=== PATIENT | male | born 1995 | race Caucasian/White ===

== ENCOUNTER → 2017-05-06 | Outpatient (CLI) | payer MEDICAID, SELFPAY | PROVIDERS: Visit Provider Nurse Practitioner Family | DX: R73.09 Other abnormal glucose (principal); E03.9 Hypothyroidism, unspecified; I10 Essential (primary) hypertension; E55.9 Vitamin D deficiency, unspecified | CPT/HCPCS: 36415; 80053; 80061; 82306; 83036; 84443; 85025 ==

== ENCOUNTER → 2017-05-08 | Outpatient (CLI) | payer MEDICAID, SELFPAY | PROVIDERS: Visit Provider Physician Assistant | DX: D64.9 Anemia, unspecified (principal) | CPT/HCPCS: 36415; 82728 ==

== ENCOUNTER → 2023-04-21 09:07 | Outpatient (CLI) | payer BC, SELFPAY ==
--- NOTE | 2023-04-21 09:15 | XR_ITS ---
FINAL REPORT CLINICAL HISTORY: left thumb pain COMPARISON: None FINDINGS: LEFT HAND Three views with special attention to the left thumb demonstrate no acute fracture or dislocation. The visualized joint spaces are normally aligned. The soft tissues are unremarkable. IMPRESSION: No acute process, with special attention to the left thumb. Reviewed, Interpreted and Dictated by Alex Murray MD Transcribed by Ita Baugh Authenticated and [facility]
== END ==
PROVIDERS: Visit Provider Orthopaedic Surgery
DX: Z89.012 Acquired absence of left thumb (principal)
CPT/HCPCS: 73130